=== PATIENT | female | born 1980 | race Two or more races ===

== ENCOUNTER → 2018-05-25 | Outpatient (CLI) | payer OTHER ==
--- NOTE | 2018-05-25 14:18 | RAD ---
DATE: May 25, 2018 EXAM: MAMMO MARK EVANGELINA LONDONO, BREAST LEFT HISTORY: Palpable abnormality superior medial left breast. Diffuse left breast pain. Baseline COMPARISON: None TECHNIQUE: 2D digital CC and MLO views were obtained. 3D tomosynthesis imaging was performed in the CC and MLO projections. Limited left breast ultrasound of the area of concern also was performed. This study was interpreted with the benefit of Computerized Aided Detection (CAD). FINDINGS: The breast parenchyma is heterogeneously dense, category C, which may obscure small masses. There is no worrisome mass or area of architectural distortion. There are no suspicious groupings of microcalcifications . Area of concern was marked with BB. Ultrasound of the area of concern demonstrates normal parenchymal tissue but no worrisome mass, cyst, or architectural distortion. IMPRESSION: No mammographic or sonographic evidence of malignancy. BI-RADS CATEGORY: 1 NEGATIVE RECOMMENDED FOLLOW-UP: 12M 12 MONTH FOLLOW-UP. In addition, recommend clinical follow-up for unexplained left breast pain. Lack of imaging findings should not exclude consideration of excisional biopsy for a palpable abnormality in the appropriate clinical setting. PQRS compliance statement: Patient information was entered into a reminder system with a target due date for the next mammogram. Mammography is a sensitive method for finding small breast cancers, but it does not detect them all and is not a substitute for careful clinical examination. A negative mammogram does not negate a clinically suspicious finding and should not result in delay in biopsying a clinically suspicious abnormality. "Our facility is accredited by the [employer] Mammography Program."
== END | disposition home or self-care (01) ==
LOC: MAMMO 12:46
PROVIDERS: ATTEND Nurse Practitioner Family
DX: R92.8 Other abnormal and inconclusive findings on diagnostic imaging of breast (principal)
CPT/HCPCS: 76641; 77066; G0279; 77062